=== PATIENT | female | born 1985 | race Hispanic/Latino ===

== ENCOUNTER 2018-12-06 23:25 | Emergency (ER) | payer MEDICAID, SELFPAY ==
[2018-12-07] MEDS ORDERED: Ibuprofen 800 MG TAB ONE (01:22)
[2018-12-07] MEDS ORDERED: Acetaminophen 500 MG TAB ONE (01:22)
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
== END 2018-12-07 02:30 | disposition home or self-care (01) ==
LOC: ERS 23:25
DX: S05.11XA Contusion of eyeball and orbital tissues, right eye, initial encounter (principal); S20.411A Abrasion of right back wall of thorax, initial encounter; S30.810A Abrasion of lower back and pelvis, initial encounter; Y04.0XXA Assault by unarmed brawl or fight, initial encounter
CPT/HCPCS: 70450; 70486; 71045

== ENCOUNTER 2020-09-27 10:35 | Inpatient (IN) | payer SELFPAY ==
[2020-09-27] MEDS ORDERED: hydrALAZINE 20 MG/ML VIAL SLOW IVP PRN (11:07)
--- NOTE | 2020-09-27 11:49 | PDOC.BPN ---
- Brief Progress Note Patient stable with no active VB. Vitals stable and WNL. OK for DC from triage. Baby will stay so we will offer mother courtesy stay as B&B. Patient has declined regular PP admit to reduce cost of services. Case management requested per RN.
--- NOTE | 2020-09-27 11:50 | HP ---
TIME OF EVALUATION: Roughly 10:40 a.m. It is now 11:04. LOCATION: Labor and Delivery in bed 2. CHIEF COMPLAINT: This patient has a chief complaint of "delivery at home"/"did not know she was ." HISTORY OF PRESENT ILLNESS: In brief, this is a 34-year-old G3, P2 with one delivery 12 years ago by vaginal and the other 10 years ago by vaginal , who states that she was at home and started having abdominal cramps, went to the restroom and delivered her baby by the toilet. She denies any trauma to the child. The cord did "snap" at home, but the baby was vigorous. She states that she did not know she was because she has occasionally skipped periods in her past. She denies any chronic medical issues. REVIEW OF SYSTEMS: GENERAL: No sick contacts. PULMONARY: No shortness of breath. CARDIOVASCULAR: No chest pain. EXTREMITIES: No unusual leg swelling or pain in the legs. PAST OB HISTORY: She is a G3, P2 with 2 previous vaginal deliveries. PAST SURGICAL HISTORY: None. ALLERGIES: NONE. PAST MEDICAL HISTORY: Negative. MEDICATIONS: Currently in use are none. SOCIAL HISTORY: Negative for alcohol, tobacco, or drug use. GYNECOLOGICAL HISTORY: She states that she occasionally skips periods and was not using any control. PHYSICAL EXAMINATION: GENERAL: The patient is alert, oriented, and seems to be with minimal discomfort. VITAL SIGNS: Still pending as she just arrived to Labor and Delivery, but my pulse check at bedside by wrist check had a pulse around 80. ABDOMEN: Soft and nontender. I did perform a perineal/vaginal examination and I found a first-degree right hymenal laceration and a first-degree midline perineal laceration, but these were hemostatic and not requiring repair. ASSESSMENT: This is a G3, P2, 34-year-old who delivered at home from a vaginal delivery. She has no previous history and has an uncomplicated past medical course with no significant issues. She is now stable. She delivered at about 5 o'clock this morning, which makes her now about 6 hours . PLAN: 1. The NICU team is evaluating the baby, but the baby seems to be fine and grossly appears to be term. 2. No active bleeding. 3. The perineal lacerations are now about 5 or 6 hours old and as they are hemostatic and only 1st degree, I do not feel they need repair. 4. The patient has requested case management for any emergency Medicaid services that she may be billed for. 5. She has requested to go home as soon as possible. 6. I discussed with the patient in [place] that we will likely watch her just for about 1 to 2 hours to make sure that she is okay and she could likely be released. This is not a full admission, but we are treating this as a hospital discharge according to our charge nurse and I agree. The baby will likely stay however for 23 hour observation, but this is up to the pediatric team. I have discussed this with the patient. For now, the diagnosis is: 1. No care, delivered. 2. Status post vaginal delivery at home. 3. Normal exam. Job ID: [id number]
== END 2020-09-27 12:00 | disposition home or self-care (01) | DRG 776 ==
LOC: L&D 10:35 → UNDOADMIN 10:50 → L&D 09-28 01:53 → UNDODISIN 09-28 13:00
PROVIDERS: ADMIT Obstetrics & Gynecology; ATTEND Obstetrics & Gynecology
DX: Z39.0 Encounter for care and examination of mother immediately after delivery (principal)